=== PATIENT | male | born 1955 | race Caucasian/White ===

== ENCOUNTER 2023-01-11 09:53 | Outpatient (CLI) | payer BC, MEDICARE ==
[2023-01-11 10:18] LABS: TOTAL HEMOGLOBIN 15.9 G/dl (14.0-17.9)
== END 2023-01-11 23:59 | disposition home or self-care (01) ==
LOC: RT 09:53
PROVIDERS: ATTEND Internal Medicine Cardiovascular Disease
DX: Z79.899 Other long term (current) drug therapy (principal)
CPT/HCPCS: 85018; 94010; 94727; 94729; A6446